=== PATIENT | male | born 1965 | race Hispanic/Latino ===

== ENCOUNTER → 2020-08-19 | Outpatient (CLI) | payer OTHER ==
[~2020-08-19] MED LIST: IOPAMIDOL 370 MG/ML 200 ML INFUS..BTL INJ ONE; SODIUM CHLORIDE 0.9% 50ML 50 ML ONE
== END ==
LOC: CT 10:27
PROVIDERS: ATTEND Internal Medicine Gastroenterology
DX: R10.13 Epigastric pain (principal); R19.00 Intra-abdominal and pelvic swelling, mass and lump, unspecified site; K42.9 Umbilical hernia without obstruction or gangrene; E66.9 Obesity, unspecified; Z71.3 Dietary counseling and surveillance
CPT/HCPCS: 74177; Q9967

== ENCOUNTER 2021-07-17 08:44 | Emergency (ER) | payer OTHER ==
[~2021-07-17] VITALS: Ht 165.1 cm; Wt 74.8 kg
[2021-07-17 10:11] VITALS: BP 129/72
== END 2021-07-17 10:12 | disposition home or self-care (01) ==
LOC: MERGE 08:49 → ER 08:49
DX: M25.562 Pain in left knee (principal); M23.92 Unspecified internal derangement of left knee; W01.0XXA Fall on same level from slipping, tripping and stumbling without subsequent striking against object, initial encounter; Y93.01 Activity, walking, marching and hiking; Y92.098 Other place in other non-institutional residence as the place of occurrence of the external cause
CPT/HCPCS: 99283

== ENCOUNTER → 2021-07-29 | Outpatient (CLI) | payer OTHER | LOC: MRI 10:14 | PROVIDERS: ATTEND Family Medicine Sports Medicine | DX: M25.562 Pain in left knee (principal); M17.12 Unilateral primary osteoarthritis, left knee; S83.222A Peripheral tear of medial meniscus, current injury, left knee, initial encounter; S83.8X2A Sprain of other specified parts of left knee, initial encounter; S83.412A Sprain of medial collateral ligament of left knee, initial encounter ==

== ENCOUNTER → 2023-11-12 | Day surgery (SDC) | payer OTHER ==
[~2023-11-12] MED LIST changes: +FENTANYL CITRATE/PF 100MCG/2 ML INJ ONE; -IOPAMIDOL 370 MG/ML 200 ML INFUS..BTL INJ ONE; +LIDOCAINE HCL 2% LOCAL INJ 5 ML SDV VIAL INJ ONE; +LIPITOR10 MG PO; +PANTOPRAZOLE SO40 MG PO; +PROPOFOL IV EMULSION 10 MG/ML 20 ML VIAL ONE; -SODIUM CHLORIDE 0.9% 50ML 50 ML ONE
[2023-11-12] MEDS: LACTATED RINGER'S 1,000 ML ONE (07:35)
[2023-11-12 09:35] VITALS: BP 123/84; PULSE 77; RESP 16; TEMP 97.2; O2SAT 97
== END | disposition home or self-care (01) ==
LOC: OR 06:42
PROVIDERS: ATTEND Internal Medicine Gastroenterology
DX: K29.70 Gastritis, unspecified, without bleeding (principal); K31.7 Polyp of stomach and duodenum; K29.80 Duodenitis without bleeding; K21.00 Gastro-esophageal reflux disease with esophagitis, without bleeding; K44.9 Diaphragmatic hernia without obstruction or gangrene; Z71.3 Dietary counseling and surveillance; E78.5 Hyperlipidemia, unspecified; Z88.0 Allergy status to penicillin; Z01.810 Encounter for preprocedural cardiovascular examination; Z79.899 Other long term (current) drug therapy; Z68.29 Body mass index [BMI] 29.0-29.9, adult
CPT/HCPCS: 43239; 43251; 93005; C9113; J2001; J2704; J3010; J7121